=== PATIENT | female | born 1985 | race Caucasian/White ===

== ENCOUNTER 2017-08-01 18:25 | Emergency (ER) | payer BC, OTHER ==
[2017-08-01] MEDS: SOD CHLORIDE 0.9% 1,000 ML IV (20:03)
[2017-08-01] MEDS: METOCLOPRAMIDE 10 MG INJ IV ×2 (20:04→21:44)
[2017-08-01] MEDS: DIPHENHYDRAMINE 50 MG INJ IV (20:04)
[2017-08-01 20:07] LABS: ADD MAN DIFF? NO
[2017-08-01 20:24] LABS: ANION GAP 16 (8-16); BASOPHILS % 0.6 % (0.0-2.0); BLOOD UREA NITROGEN 15 mg/dl (7-20); CALCIUM 9.5 mg/dl (8.4-10.2); CARBON DIOXIDE 22 mmol/L (21-31); CHLORIDE 113 mmol/L (97-110); CREATININE 0.74 mg/dl (0.44-1.00); EOSINOPHILS # 0.3 10^3/ul (0.0-0.5); EOSINOPHILS % 4.2 % (0.0-7.0); GLUCOSE 99 mg/dl (70-220); HEMATOCRIT 36.6 % (37.0-47.0); HEMOGLOBIN 12.1 g/dl (12.0-16.0); LYMPHOCYTES % 42.8 % (15.0-51.0); MEAN CORPUSCULAR HEMOGLOBIN 28.3 pg (29.0-33.0); MEAN CORPUSCULAR HGB CONC 33.1 g/dl (32.0-37.0); MEAN CORPUSCULAR VOLUME 85.5 fl (82.0-101.0); MEAN PLATELET VOLUME 10.2 fl (7.4-10.4); MONOCYTE # 0.4 10^3/ul (0.3-0.9); MONOCYTES % 5.6 % (0.0-11.0); NEUTROPHIL # 3.3 10^3/ul (1.6-7.5); NEUTROPHILS % 46.7 % (39.0-77.0); PLATELET COUNT 388 10^3/UL (140-415); POTASSIUM 3.4 mmol/L (3.5-5.1); RED BLOOD COUNT 4.28 10^6/ul (4.20-5.40); RED CELL DISTRIBUTION WIDTH 13.4 % (11.5-14.5); SODIUM 148 mmol/L (135-144)
[2017-08-01] MEDS: HYDROCODONE/APAP (10/325) TAB PO (21:45)
[2017-08-01] MEDS: DIPHENHYDRAMINE 25 MG CAP PO (22:16)
== END 2017-08-01 22:27 | disposition home or self-care (01) ==
LOC: FTE 22:27
DX: J32.0 Chronic maxillary sinusitis (principal)
CPT/HCPCS: 36415; 70450; 70486; 80048; 81025; 85025; 96374; 96375; 96376; 99285-25

== ENCOUNTER 2017-12-25 20:37 | Emergency (ER) | payer OTHER, BC ==
[2017-12-25 21:58] LABS: ADD MAN DIFF? NO
[2017-12-25 22:01] LABS: BASOPHILS % 0.4 % (0.0-2.0); EOSINOPHILS # 0.4 10^3/ul (0.0-0.5); EOSINOPHILS % 4.2 % (0.0-7.0); HEMATOCRIT 33.8 % (37.0-47.0); HEMOGLOBIN 11.2 g/dl (12.0-16.0); LYMPHOCYTES # 3.1 10^3/ul (0.8-2.9); LYMPHOCYTES % 32.9 % (15.0-51.0); MEAN CORPUSCULAR HEMOGLOBIN 29.2 pg (29.0-33.0); MEAN CORPUSCULAR HGB CONC 33.1 g/dl (32.0-37.0); MEAN CORPUSCULAR VOLUME 88.3 fl (82.0-101.0); MEAN PLATELET VOLUME 9.7 fl (7.4-10.4); MONOCYTE # 0.4 10^3/ul (0.3-0.9); MONOCYTES % 4.5 % (0.0-11.0); NEUTROPHIL # 5.5 10^3/ul (1.6-7.5); NEUTROPHILS % 57.7 % (39.0-77.0); PLATELET COUNT 356 10^3/UL (140-415); RED BLOOD COUNT 3.83 10^6/ul (4.20-5.40); RED CELL DISTRIBUTION WIDTH 12.4 % (11.5-14.5)
[2017-12-25 22:01] LABS: WHITE BLOOD COUNT 9.5 10^3/ul (4.8-10.8)
[2017-12-25 22:13] LABS: ADD UMIC YES; UR ASCORBIC ACID NEGATIVE (NEGATIVE); UR BILIRUBIN (Dip) NEGATIVE (NEGATIVE); UR BLOOD (Dip) 2+ mg/dL (NEGATIVE); UR CLARITY SLIGHTLY CLOUDY (CLEAR); UR COLOR YELLOW (YELLOW); UR GLUCOSE (Dip) NEGATIVE (NEGATIVE); UR KETONES (Dip) TRACE mg/dL (NEGATIVE); UR LEUKOCYTE ESTERASE (Dip) TRACE Leu/ul (NEGATIVE); UR MUCUS MODERATE /HPF (NONE SEEN); UR NITRITE (Dip) NEGATIVE (NEGATIVE); UR RBC 10 /HPF (0-5); UR SPECIFIC GRAVITY (Dip) 1.027 (1.003-1.030); UR SQUAMOUS EPITHELIAL CELL FEW /HPF (FEW); UR TOTAL PROTEIN (Dip) 1+ mg/dl (NEGATIVE); UR UROBILINOGEN (Dip) NEGATIVE (NEGATIVE); UR WBC 5 /HPF (0-5)
[2017-12-25] MEDS: SOD CHLORIDE 0.9% 1,000 ML IV (22:14)
[2017-12-25] MEDS: FENTAnyl 50 MCG/ML VIAL IV (22:14)
[2017-12-25 22:24] LABS: ANION GAP 11 (8-16); BLOOD UREA NITROGEN 12 mg/dl (7-20); CALCIUM 8.9 mg/dl (8.4-10.2); CARBON DIOXIDE 24 mmol/L (21-31); CHLORIDE 110 mmol/L (97-110); CREATININE 0.72 mg/dl (0.44-1.00); GLUCOSE 88 mg/dl (70-220); POTASSIUM 3.1 mmol/L (3.5-5.1); SODIUM 142 mmol/L (135-144)
[2017-12-25] MEDS: METOCLOPRAMIDE 10 MG INJ IV (22:32)
[2017-12-25] MEDS: DIPHENHYDRAMINE 50 MG CAP PO (22:32)
[2017-12-25] MEDS: CEFTRIAXONE 1 GM/50 ML (PMX) 50 ML IVPB (23:04)
[2017-12-25] MEDS: POTASSIUM CHLORIDE (SR) 20 MEQ TAB PO (23:05)
== END 2017-12-25 23:44 | disposition home or self-care (01) ==
LOC: E/R 20:37
DX: N12 Tubulo-interstitial nephritis, not specified as acute or chronic (principal)
CPT/HCPCS: 36415; 80048; 81001; 85025; 96374; 96375; 99284-25